=== PATIENT | female | born 1995 | race Caucasian/White ===

== ENCOUNTER 2020-05-28 16:05 | Outpatient (REF) | payer BC, SELFPAY | END 2020-05-28 16:06 | disposition home or self-care (01) | LOC: HO.LAB 16:05 | PROVIDERS: Visit Provider Internal Medicine | DX: Z20.822 Contact with and (suspected) exposure to COVID-19 (principal) | CPT/HCPCS: 36415; C9803; U0003 ==

== ENCOUNTER 2020-08-20 16:01 | Outpatient (REF) | payer BC, SELFPAY ==
[2020-08-21 11:18] LABS: SARS COV2 PCR INHOUSE NEGATIVE (Negative)
== END 2020-08-20 16:02 | disposition home or self-care (01) ==
LOC: HO.LAB 16:01
PROVIDERS: Visit Provider Internal Medicine
DX: Z20.822 Contact with and (suspected) exposure to COVID-19 (principal)
CPT/HCPCS: C9803; U0003

== ENCOUNTER 2022-03-04 13:54 | Outpatient (REF) | payer MEDICAID, SELFPAY ==
--- NOTE | ~2022-03-04 | XR_ITS ---
EXAMINATION: XR CHEST CLINICAL INFORMATION: Shortness of breath COMPARISON: None TECHNIQUE: 2 views of the chest were obtained. FINDINGS: No significant abnormality is noted involving the heart, lungs, mediastinum, bony thorax or soft tissues. XR/XR chest 2V IMPRESSION: No acute disease.
== END 2022-03-04 13:55 | disposition home or self-care (01) ==
LOC: HO.XRAY 13:54
PROVIDERS: Absent Provider Registered Nurse; PCP Registered Nurse; Visit Provider Family Medicine
DX: R06.02 Shortness of breath (principal)
CPT/HCPCS: 71046

== ENCOUNTER 2022-03-06 08:01 | Observation (INO) | payer MEDICAID, SELFPAY ==
[2022-03-06] VITALS (7 sets, daily range): BP systolic 92–119; BP diastolic 54–72; PULSE 62–124; RESP 14–18; TEMP 36.6–37.2; O2SAT 97–100; BMI 21.5
--- NOTE | ~2022-03-06 | CT_ITS ---
EXAMINATION: CT ANGIOGRAM OF THE HEAD CT ANGIOGRAM OF THE NECK CLINICAL INFORMATION: Confusion, facial numbness. COMPARISON: There are no prior studies available for comparison. . TECHNIQUE: A noncontrast axial CT scan of the head was obtained. Test bolus series followed by intravenous administration 70 mL of Omnipaque 350. Helical imaging was performed in the axial plane from the mediastinum to the skull vertex. The degree of stenosis is based off NASCET criteria. The data was processed at the public health technologist workstation for generation of MIP images. Three-dimensional volume rendered reformatted images were also generated at an offline 3-D workstation. This CT examination was performed using dose optimization techniques as appropriate, variously including the following: *Automated exposure control *Adjustment of mA and/or kV according to patient size (this includes techniques or standardized protocols for targeted exams where dose is matched to indication/reason for exam; i.e. extremities or head) *Use of iterative reconstruction technique DLP: 2230 mGy-cm. FINDINGS: CT Head: There is no evidence of acute intracranial hemorrhage or territorial infarction. No abnormal mass-effect or midline shift is seen. García to white matter differentiation is well preserved. No extra-axial fluid collections are identified. There is no abnormal enhancement. The ventricles are normal in size. There is no abnormal attenuation within the brain parenchyma. The osseous structures and soft tissues are normal. The mastoid air cells and visualized portions of the paranasal sinuses are well-aerated. CTA Neck: There is a classic configuration of the arch of the aorta. The great vessels of the neck are widely patent. The subclavian arteries appear normal bilaterally. The common carotid arteries have normal caliber. The carotid bifurcations bilaterally appear normal. The internal carotid arteries in the neck bilaterally have uniform and normal caliber. The origins of both vertebral arteries are well seen and appear normal. Both vertebral arteries are widely patent and demonstrate good opacification throughout their cervical course. The left vertebral artery is slightly dominant. Nonvascular: The visualized upper lung torres are well-aerated. There is no cervical lymphadenopathy. The thyroid gland appears normal. There is reversal of the normal cervical lordosis which is likely positional or muscle spasm. There are no acute findings of the cervical spine. CTA Head: In the anterior circulation, the distal internal carotid arteries within the neck appear normal. The intracranial internal carotid arteries and their bifurcations appear normal. The middle and anterior cerebral arteries bilaterally demonstrate normal caliber with no evidence of focal stenosis, aneurysm or vascular malformation. There is normal arborization of the middle cerebral artery branches. The anterior communicating artery is normal. In the posterior circulation, the left vertebral artery is dominant. The vertebral arteries intradurally have normal caliber. The basilar artery appears normal. The posterior cerebral arteries have normal caliber. The venous sinuses opacify normally. CT/CT angio head neck IMPRESSION: CT head and neck: 1. There are no acute bleeds or infarcts. There are no masses or areas of abnormal enhancement. 2. There is no cervical lymphadenopathy. CTA NECK: 1. There are no flow-limiting stenoses in the upper chest and neck. 2. Intracranially there are no focal stenoses, aneurysms or vascular malformations. This critical result was discussed with MARTIN Marti by telephone on 03/06/2022 at 6:49 PM and it was ascertained that the content and urgency of the report was understood at the time of direct communication.
--- NOTE | ~2022-03-06 | MR_ITS ---
EXAMINATION: MRI OF THE BRAIN WITHOUT CONTRAST CLINICAL INFORMATION: Facial paresthesias and syncope. COMPARISON: CT of the head and neck 03/06/2020. TECHNIQUE: MRI of the brain was obtained using routine sequences without contrast. FINDINGS: No diffusion abnormalities are identified to suggest an acute or subacute infarct. No mass effect or midline shift is seen. The ventricles and sulci are normal in size. There are a few punctate foci of hyperintense T2 and FLAIR signal in the periventricular and subcortical white matter which are nonspecific. They may be consistent with sequelae of vasculitis or migraine. The patient is relatively young for chronic microvascular ischemic changes. Demyelination cannot be excluded in the correct clinical setting. No extra-axial fluid collections are seen. The brainstem and cerebellum are normal. No pathologic magnetic susceptibility artifact is identified on the gradient refocused acquisition. The craniovertebral junction, marrow signal, and midline structures are normal. The major intracranial flow-voids at the level of the [place] are preserved. The dural venous sinus flow-voids are maintained. The mastoid air cells are well-aerated. There is mucoperiosteal thickening in bilateral maxillary and ethmoid sinuses. MR/MR head/brain wo con IMPRESSION: 1. There are no acute bleeds or infarcts. No masses are demonstrated. 2. There are nonspecific white matter changes as described above. 3. There is paranasal sinus opacification.
--- NOTE | 2022-03-06 12:54 | ED_ITS ---
HPI - Neuro Symptoms/Deficit General Chief Complaint: Neuro Symptoms/Deficit Stated Complaint: Blacked Out Facial Numbness 0700 2 Min Time Seen by Provider: 03/06/22 12:53 Source: patient Mode of arrival: ambulatory History of Present Illness HPI Narrative: 26-year-old female with no significant past medical history presenting to the ED complaining of blackout episode of 2-3 minutes this morning around 06:30AM. States woke up to say goodbye to her boyfriend, was sitting up in bed then leaned/fell into hugging him then laid back in bed, patient states could hear him however felt like he was far away, when came back to baseline admits to facial/lip numbness. Patient does not remember incident, states boyfriend said he was talking to her however she not really responding, he did not understand what was going on. Symptoms resolved at present. Reports checked BP and SpO2 was 84% after incident at home. Admits to intermittent headache since last night. Reports recent URI symptoms with cough, and waking up gasping for air. Denies focal weakness, vision change/loss, chest pain, abdominal pain, nausea, vomiting, numbness/tingling at present. Denies taking anticoagulation Onset (ago): hour(s) Related Data Allergies Allergy/AdvReac Type Severity Reaction Status Date / Time No Known Allergies Allergy Unverified 02/02/20 19:33 [No Known Allergies*] Review of Systems Review of Systems: Constitutional: No Fever, No Chills, No Fatigue, No Malaise ENT/Mouth: No Ear Pain, No Nasal Congestion, No sore throat, No Rhinorrhea, No Swallowing Difficulty Eyes: No Eye Pain, No Swelling, No Redness, No Discharge, No Vision Changes Cardiovascular: No Chest Pain, No SOB, No Dyspnea on Exertion, No Orthopnea, No Edema, No Palpitations Respiratory: No Cough, No Sputum, No Dyspnea Gastrointestinal: No Nausea, No Vomiting, No Diarrhea, No Constipation, No Abdominal pain Genitourinary: No Dysuria, No Urinary Frequency, No Hematuria, No Urinary Incont inence/retention, No Flank Pain Musculoskeletal: No joint pain, No Myalgias, No Joint Swelling Skin: No Skin Lesions, No rash Neuro: No Weakness, + Numbness, + Paresthesias, ? Loss of Consciousness, No Dizziness, +intermittent Headache, +confusion Yes all other systems are reviewed and are negative Constitutional: Constitutional: Reports as per HPI Neurologic: Denies Abnormal speech present [facility] Past Medical History Attestation statement: The following information was validated with the patient. Social History Social History Advance Directives: No Advance Directives Information Provided: No Physical Exam Vital Signs: Vital Signs: Last Vital Signs Temp 98 F 03/06/22 09:41 Pulse 73 03/06/22 09:41 Resp 18 03/06/22 09:41 BP 119/71 03/06/22 09:41 Pulse Ox 100 03/06/22 09:41 O2 Del Method 03/06/22 09:41 BMI result Body Mass Index 21.5 Const: General: cooperative, healthy appearing, no acute distress, well developed, alert and awake Orientation/consciousness: patient oriented x3 Limitations: no limitations HEENT: Head: Yes normal to inspection and Yes atraumatic Ears: hearing grossly normal bilaterally General nose exam: Normal external nose present Face and sinus: Yes normal facial exam Throat: Yes posterior oropharynx normal, Yes tonsils normal and Yes uvula midline Eyes: General: appearance normal, both eyes and all related structures Pupils: Equal, round and reactive pupils present EOM: EOMs intact bilaterally Neck: Neck: Yes normal visual inspection, Yes no lymphadenopathy and Yes no meningeal signs Resp: Effort & Inspection: normal respiratory effort and no respiratory distress Auscultation: clear to auscultation bilaterally, no crackles, no rales, no rhonchi and no wheezes Cardio: Rate: regular rate Heart sounds: S1 normal heart sound present and S2 normal heart sound present GI: Inspection: Yes normal to inspection Palpation (GI): Soft to palpation, nontender, no guarding and not rigid : General: Yes no CVA tenderness Back/Spine/Pelvis: Back: no CVA tenderness Skin: Rashes: no rashes Wounds: no wounds Neuro: General: patient oriented x3, gait normal, tone normal, moves all extremities, no meningeal signs, no focal motor deficits and CN's II-XI intact bilaterally Cranial nerves: Yes CN's II-XII intact bilaterally, Yes Equal, round and reactive pupils present and Yes Bilaterally intact EOM present Cognition (Neuro): normal cognition Speech: No Abnormal speech present Gait exam (Neuro): Normal gait present Motor exam (neuro): 5/5 motor strength present throughout, Pronator motor function not present and no tremor noted Coordination: [id number] test normal Romberg Test: Negative Extrem: General: Yes normal to inspection Course Course Course Narrative: 1430--no leukocytosis. H&H stable. D-dimer WNL, labs otherwise unremarkable. Troponin negative -UA negative XR chest 2V IMPRESSION: No acute disease. 1920--CT angio head neck IMPRESSION: CT head and neck: 1. There are no acute bleeds or infarcts. There are no masses or areas of abnormal enhancement. 2. There is no cervical lymphadenopathy. ? CTA NECK: 1. There are no flow-limiting stenoses in the upper chest and neck. 2. Intracranially there are no focal stenoses, aneurysms or vascular malformations. >> case discussed with Neurology, Dr. Varela, recommended admission, EEG and brain MRI, concern for possible seizure. Plan to admit for further management MDM - Neuro Symptoms/Deficit MDM Narrative Medical decision making narrative: 26-year-old female with no significant past medical history presenting to the ED complaining of blackout episode of 2-3 minutes this morning around 06:30AM. On exam vital signs stable, in the ED, nontoxic appearing, no focal neuro deficits, ambulating with steady gait, asymptomatic at present, NIHSS=0. Patient is not a candidate for tPA. Concern for syncope vs ?Seizure vs ?TIA vs arterial pahtology. Low suspicion for CVA, ICH. Rule out metabolic/infectious etiologies. Lower suspicion for PE/ACS Plan: EKG, labs, UA, CXR, head CT, CTA head and neck, IVF, orthostatics Differential Diagnosis Differential diagnosis: Likely convulsions, delirium, peripheral neuropathy, transient cerebral ischemia and global amnesia Medical Records Attestation: I reviewed the patient's medical records. Lab Data Attestation: I reviewed the patient's lab results. Result diagrams: 03/06/22 13:48 03/06/22 13:48 Labs: Lab Results 03/06/22 03/06/22 03/06/22 Range/Units 13:47 13:47 13:48 WBC 10.8 (4.8-10.8) X10*3/uL RBC 4.77 (4.20-5.50) X10*6/uL Hgb 14.3 (12.0-16.0) g/dl Hct 43.3 (37.0-47.0) % MCV 90.8 (80.0-98.0) fL MCH 30.0 (27.0-33.0) pg MCHC 33.0 (31.0-35.0) g/dl RDW 12.2 (11.0-16.0) % Plt Count 228 (160-400) X10*3/uL MPV 9.5 (9.4-12.3) fL Immature Gran % (Auto) 0.3 (0.0-0.4) % Neut % (Auto) 66.2 (45-73) % Lymph % (Auto) 22.3 (20-40) % [place] % (Auto) 5.4 (2-11) % Eos % (Auto) 5.4 H (0-4) % Baso % (Auto) 0.4 (0-2) % Lymph # (Auto) 2.4 (1.2-4.9) X10*3/uL [place] # (Auto) 0.6 (0.1-1.2) X10*3/uL Eos # (Auto) 0.6 H (0.0-0.4) X10*3/uL Baso # (Auto) 0.0 (0.0-0.2) X10*3/uL Abs Immat Gran (auto) 0.03 (0.00-0.03) X10*3/uL Absolute Neuts (auto) 7.1 (2.0-8.3) x10*3/uL Absolute Nucleated RBC 0.000 (0.0-0.012) X10*3/uL Nucleated RBC % (auto) 0.0 (0.0-0.2) /100WBC PT (10.0-13.1) SEC INR (0.9-1.1) D-Dimer High Sensitivty NG/ML Sodium (135-145) mmol/L Potassium (3.3-5.1) mmol/L Chloride (96-108) mmol/L Carbon Dioxide (22-29) mmol/L Anion Gap (12-20) BUN (9-16) mg/dL Creatinine (0.5-1.4) mg/dL Estim Creat Clear Calc Estimated GFR Random Glucose (60-115) mg/dL Calcium (8.4-10.2) mg/dL Magnesium (1.6-2.6) mg/dL Total Bilirubin (0.0-1.0) mg/dL Direct Bilirubin (0.0-0.5) mg/dL AST (5-31) U/L ALT (0-31) U/L Alkaline Phosphatase (39-117) U/L Troponin I High Sens (<3.5-17.0) ng/L Total Protein (6.5-8.0) g/dL Albumin (3.5-5.0) g/dL Urine Color Yellow Urine Appearance Clear Urine pH 5.5 (5.0-9.0) Ur Specific [place] 1.020 (1.005-1.025) Urine Protein Negative (Neg-Trace) mg/dL Urine Glucose (UA) Negative (Negative) mg/dL Urine Ketones Negative (Negative) mg/dL Urine Blood Negative (Negative) Urine Nitrite Negative (Negative) Ur Leukocyte Esterase Negative (Negative) Urine Test NEGATIVE (NEGATIVE) Urine Opiates Screen (Not Detect) Urine Fentanyl Screen (Not Detect) Ur Barbiturates Screen (Not Detect) Ur Phencyclidine Scrn (Not Detect) Ur Amphetamines Screen (Not Detect) U Benzodiazepines Scrn (Not Detect) Urine Cocaine Screen (Not Detect) U Marijuana (THC) Screen (Not Detect) 03/06/22 03/06/22 03/06/22 Range/Units 13:48 13:48 13:48 WBC (4.8-10.8) X10*3/uL RBC (4.20-5.50) X10*6/uL Hgb (12.0-16.0) g/dl Hct (37.0-47.0) % MCV (80.0-98.0) fL MCH (27.0-33.0) pg MCHC (31.0-35.0) g/dl RDW (11.0-16.0) % Plt Count (160-400) X10*3/uL MPV (9.4-12.3) fL Immature Gran % (Auto) (0.0-0.4) % Neut % (Auto) (45-73) % Lymph % (Auto) (20-40) % [place] % (Auto) (2-11) % Eos % (Auto) (0-4) % Baso % (Auto) (0-2) % Lymph # (Auto) (1.2-4.9) X10*3/uL [place] # (Auto) (0.1-1.2) X10*3/uL Eos # (Auto) (0.0-0.4) X10*3/uL Baso # (Auto) (0.0-0.2) X10*3/uL Abs Immat Gran (auto) (0.00-0.03) X10*3/uL Absolute Neuts (auto) (2.0-8.3) x10*3/uL Absolute Nucleated RBC (0.0-0.012) X10*3/uL Nucleated RBC % (auto) (0.0-0.2) /100WBC PT 12.8 (10.0-13.1) SEC INR 1.1 (0.9-1.1) D-Dimer High Sensitivty NG/ML Sodium 141 (135-145) mmol/L Potassium 4.1 (3.3-5.1) mmol/L Chloride 105 (96-108) mmol/L Carbon Dioxide 27 (22-29) mmol/L Anion Gap 13 (12-20) BUN 11 (9-16) mg/dL Creatinine 0.77 (0.5-1.4) mg/dL Estim Creat Clear Calc 90.8 Estimated GFR > 60 Random Glucose 93 (60-115) mg/dL Calcium 9.5 (8.4-10.2) mg/dL Magnesium 2.0 (1.6-2.6) mg/dL Total Bilirubin 1.1 H (0.0-1.0) mg/dL Direct Bilirubin 0.3 (0.0-0.5) mg/dL AST 21 (5-31) U/L ALT 16 (0-31) U/L Alkaline Phosphatase 63 (39-117) U/L Troponin I High Sens < 3.5 (<3.5-17.0) ng/L Total Protein 7.3 (6.5-8.0) g/dL Albumin 4.5 (3.5-5.0) g/dL Urine Color Urine Appearance Urine pH (5.0-9.0) Ur Specific [place] (1.005-1.025) Urine Protein (Neg-Trace) mg/dL Urine Glucose (UA) (Negative) mg/dL Urine Ketones (Negative) mg/dL Urine Blood (Negative) Urine Nitrite (Negative) Ur Leukocyte Esterase (Negative) Urine Test (NEGATIVE) Urine Opiates Screen (Not Detect) Urine Fentanyl Screen (Not Detect) Ur Barbiturates Screen (Not Detect) Ur Phencyclidine Scrn (Not Detect) Ur Amphetamines Screen (Not Detect) U Benzodiazepines Scrn (Not Detect) Urine Cocaine Screen (Not Detect) U Marijuana (THC) Screen (Not Detect) 03/06/22 03/06/22 Range/Units 13:48 13:48 WBC (4.8-10.8) X10*3/uL RBC (4.20-5.50) X10*6/uL Hgb (12.0-16.0) g/dl Hct (37.0-47.0) % MCV (80.0-98.0) fL MCH (27.0-33.0) pg MCHC (31.0-35.0) g/dl RDW (11.0-16.0) % Plt Count (160-400) X10*3/uL MPV (9.4-12.3) fL Immature Gran % (Auto) (0.0-0.4) % Neut % (Auto) (45-73) % Lymph % (Auto) (20-40) % [place] % (Auto) (2-11) % Eos % (Auto) (0-4) % Baso % (Auto) (0-2) % Lymph # (Auto) (1.2-4.9) X10*3/uL [place] # (Auto) (0.1-1.2) X10*3/uL Eos # (Auto) (0.0-0.4) X10*3/uL Baso # (Auto) (0.0-0.2) X10*3/uL Abs Immat Gran (auto) (0.00-0.03) X10*3/uL Absolute Neuts (auto) (2.0-8.3) x10*3/uL Absolute Nucleated RBC (0.0-0.012) X10*3/uL Nucleated RBC % (auto) (0.0-0.2) /100WBC PT (10.0-13.1) SEC INR (0.9-1.1) D-Dimer High Sensitivty < 150 NG/ML Sodium (135-145) mmol/L Potassium (3.3-5.1) mmol/L Chloride (96-108) mmol/L Carbon Dioxide (22-29) mmol/L Anion Gap (12-20) BUN (9-16) mg/dL Creatinine (0.5-1.4) mg/dL Estim Creat Clear Calc Estimated GFR Random Glucose (60-115) mg/dL Calcium (8.4-10.2) mg/dL Magnesium (1.6-2.6) mg/dL Total Bilirubin (0.0-1.0) mg/dL Direct Bilirubin (0.0-0.5) mg/dL AST (5-31) U/L ALT (0-31) U/L Alkaline Phosphatase (39-117) U/L Troponin I High Sens (<3.5-17.0) ng/L Total Protein (6.5-8.0) g/dL Albumin (3.5-5.0) g/dL Urine Color Urine Appearance Urine pH (5.0-9.0) Ur Specific [place] (1.005-1.025) Urine Protein (Neg-Trace) mg/dL Urine Glucose (UA) (Negative) mg/dL Urine Ketones (Negative) mg/dL Urine Blood (Negative) Urine Nitrite (Negative) Ur Leukocyte Esterase (Negative) Urine Test (NEGATIVE) Urine Opiates Screen Not Detected (Not Detect) Urine Fentanyl Screen Not Detected (Not Detect) Ur Barbiturates Screen Not Detected (Not Detect) Ur Phencyclidine Scrn Not Detected (Not Detect) Ur Amphetamines Screen Not Detected (Not Detect) U Benzodiazepines Scrn Not Detected (Not Detect) Urine Cocaine Screen Not Detected (Not Detect) U Marijuana (THC) Screen Not Detected (Not Detect) NIH Stroke Scale Internal: Initial- Upon Arrival Level of Consciousness: Alert Level of Consciousness Questions: Answers both questions correctly Level of Consciousness Commands: Performs both tasks correctly Best Gaze: Normal Visual: No visual loss Facial Palsy: Normal Motor Arm (Right): No drift Motor Arm (Left): No drift Motor Leg (Right): No drift Motor Leg (Left): No drift Limb Ataxia: Absent Sensory: Normal Best Language: No aphasia Dysarthia: Normal Extinction and Inattention: No abnormality Score: 0 Discharge Plan Discharge Clinical Impression: Amnesia memory loss Patient Disposition: Admitted As Inpatient
--- NOTE | 2022-03-06 13:04 | ECG_ITS ---
Test Reason : SYNCOPE Blood Pressure : / mmHG Vent. Rate : 084 BPM Atrial Rate : 084 BPM P-R Int : 140 ms QRS Dur : 074 ms QT Int : 368 ms P-R-T Axes : 074 075 069 degrees QTc Int : 434 ms Normal sinus rhythm with sinus arrhythmia RSR' or QR pattern in V1 suggests right ventricular conduction delay Otherwise normal ECG No previous ECGs available Referred By: Patricia Mac Electronically Signed By:ROJELIO GARSIA MD
[2022-03-06 13:52] LABS: MANUAL DIFF FLAG NO
[2022-03-06] MEDS: 0.9 % Sodium Chloride 1,000 ML 999 ML IV (13:54)
[2022-03-06 13:56] LABS: Basophils Percent Auto 0.4 % (0-2); Eosinophils Absolute Auto 0.6 X10*3/uL (0.0-0.4); Eosinophils Percent Auto 5.4 % (0-4); Hematocrit 43.3 % (37.0-47.0); Hemoglobin 14.3 g/dl (12.0-16.0); Imm Gran Abs Auto 0.03 X10*3/uL (0.00-0.03); Imm Gran Pct Auto 0.3 % (0.0-0.4); Lymphocytes Absolute Auto 2.4 X10*3/uL (1.2-4.9); Lymphocytes Percent Auto 22.3 % (20-40); Mean Corpuscular Volume 90.8 fL (80.0-98.0); Mean Platelet Volume 9.5 fL (9.4-12.3); Monocytes Absolute Auto 0.6 X10*3/uL (0.1-1.2); Monocytes Percent Auto 5.4 % (2-11); Neutrophils Absolute Auto 7.1 x10*3/uL (2.0-8.3); Neutrophils Percent Auto 66.2 % (45-73); Platelet Count 228 X10*3/uL (160-400); Red Blood Count 4.77 X10*6/uL (4.20-5.50); Red Cell Distribution Width 12.2 % (11.0-16.0); White Blood Count 10.8 X10*3/uL (4.8-10.8)
[2022-03-06 13:59] LABS: Appearance Urine Clear; Color Urine Yellow; Glucose Urine UA Negative (Negative); Leukocyte Esterase Urine Negative (Negative); Nitrite Urine Negative (Negative); PH 5.5 (5.0-9.0); Urine Blood Negative (Negative); Urine Ketones Negative (Negative); Urine Protein Negative (Neg-Trace)
[2022-03-06 14:00] LABS: UPreg QC Valid YES; Urine Pregnancy NEGATIVE (NEGATIVE)
[2022-03-06 14:06] LABS: D Dimer High Sensitivity < 150 NG/ML
[2022-03-06 14:16] LABS: Alanine Aminotransferase 16 U/L (0-31); Albumin Level 4.5 g/dL (3.5-5.0); Alkaline Phosphatase 63 U/L (39-117); Anion Gap 13 (12-20); Aspartate Amino Transferase 21 U/L (5-31); Bilirubin Direct 0.3 mg/dL (0.0-0.5); Bilirubin Total 1.1 mg/dL (0.0-1.0); Blood Urea Nitrogen 11 mg/dL (9-16); Calcium 9.5 mg/dL (8.4-10.2); Carbon Dioxide 27 mmol/L (22-29); Chloride 105 mmol/L (96-108); Creatinine Clr Calc Pharmacy 90.8; Estimated Glomerular Filt Rate > 60; Glucose Random 93 mg/dL (60-115); Potassium 4.1 mmol/L (3.3-5.1); Sodium 141 mmol/L (135-145); Total Protein 7.3 g/dL (6.5-8.0)
[2022-03-06 14:19] LABS: Troponin-I High Sensitivity < 3.5 ng/L (<3.5-17.0)
[2022-03-06 14:20] LABS: INTERNATIONAL NORM RATIO 1.1 (0.9-1.1); Prothrombin Time 12.8 SEC (10.0-13.1)
[2022-03-06 16:46] LABS: Amphetamine Screen Urine Not Detected (Not Detect); Barbiturates, Urine Not Detected (Not Detect); Benzodiazepines Screen Urine Not Detected (Not Detect); Cannabinoid Screen Urine Not Detected (Not Detect); Cocaine Screen Urine Not Detected (Not Detect); Fentanyl, urine Not Detected (Not Detect); Opiate Screen Urine Not Detected (Not Detect); Phencyclidine Screen Urine Not Detected (Not Detect)
[2022-03-06] MEDS: iohexoL 350 MG/ML 100 ML INFUS..BTL IV (17:35)
--- NOTE | 2022-03-06 20:01 | PM.IMHP ---
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 She is here today with her boyfriend with whom she lives. She awoke this am around 6:00 when her boyfriend was getting ready for work. She recalls sitting up wanting to kiss him goodbye but felt weird (unable to describe) and instead slumped forward hugging him and slid down to a laying position. Thinking she was falling back to sleep he got up and stood in the door way. The patient recalls his voice sounding muffled and farther away and was very confused about what was going on. Her boyfriend states her speech was not slurred and made sense without any facial droop. She states when she sat up she was confused and her face became flushed and developed numbness of the entire face. She states she got in the shower and texted her father who arrived at 730am and she felt a bit more oriented but still had tingling along her hairline. Has no history of similar events. She denies etoh use or illicit drug use. States she did have a seizure 6 years ago related to zoloft use but this was discontinued without any recurrence. Denies any migraine history. No tick bites. She does endorse occassional panic attacks but states she was not anxious at the onset of her symptoms. On arrival to the ED symptoms had fully resolved but is still unclear about the events between 6-730 this am. She denies any recent illness. Not on estrogen containing OCP. No fevers, chills, nausea, vomiting, abdominal pain, urinary issues, diarrhea, worsening shortness of breath, palpitations, lightheadedness, or chest pain. In the ED, VSS, EKG shows normal sinus rhythm without any ST/T-wave abnormalities. Hematology studies unremarkable. Renal function, electrolyte levels, hepatic. Troponin negative. UA unremarkable. Tox screen negative. Chest x-ray negative for any acute pulmonary pathology. CTA head and neck are negative for any acute bleed or infarctions. There are no flow-limiting stenoses in the upper chest neck or focal stenoses intracranially, aneurysms, or vascular malformations. Case was discussed with Neurology who is recommending observation and brain MRI. Review of Systems Review of Systems: General: No fevers, malaise, unintentional weight loss HEENT: No blurred vision or diplopia Cardiovascular: No chest pain, palpitations, or leg edema Respiratory: No shortness of breath, wheezing, cough GI: No abdominal pain, nausea, vomiting, diarrhea, constipation, melena, hematochezia : No dysphagia, globus sensation, increased urinary frequency. MSK: No myalgias or arthralgias Neuro: +confusion, + paresthesias. No headaches, weakness Skin: No rashes or lesions PMFSH Medical History Post-COVID chronic dyspnea Family History Father Hyperlipidemia Paternal Grandmother Hyperlipidemia HTN (hypertension) Social History Alcohol intake: current Alcohol intake frequency: a few times a month Patient Tobacco Use Status: Never used Tobacco Use of substances other than those prescribed or required for medical reasons: Yes Advance Directives: No Advance Directives Information Provided: No Meds Allergies Allergy/AdvReac Type Severity Reaction Status Date / Time No Known Allergies Allergy Unverified 02/02/20 19:33 [No Known Allergies*] Active Medications: Current Medications Acetaminophen (Acetaminophen 325 Mg Tablet) 650 mg PO Q6H PRN PRN Reason: Pain, Mild (Pain Scale 1-3) Enoxaparin Sodium (Enoxaparin Sodium 40 Mg/0.4 Ml Syringe) 40 mg SUBCUT Q24H [facility] Ondansetron HCl (Ondansetron Hcl 4 Mg/2 Ml Vial) 4 mg IVPUSH Q8H PRN PRN Reason: Nausea and Vomiting Pharmacy Consult (Consult Rx Perform Med Rec) 1 each MISCELLANE ONCE PRN PRN Reason: Consult order Sodium Chloride (0.9 % Sodium Chloride Flush 3 Ml Syringe) 3 ml IVFLUSH QSHIFT [facility] Home Medications Medication Instructions Recorded Confirmed Last Taken Type albuterol sulfate 90 mcg/actuation 2 puff inhalation Q4-6H PRN 03/06/22 03/06/22 Unknown History aerosol inhaler Shortness Of Breath fluticasone propionate 110 1 puff inhalation BID 03/06/22 03/06/22 Unknown History mcg/actuation HFA aerosol inhaler Physical Exam Vital Signs and Narrative: Vital Signs: Last Vital Signs Temp 98 F 03/06/22 09:41 Pulse 73 03/06/22 09:41 Resp 18 03/06/22 09:41 BP 119/71 03/06/22 09:41 Pulse Ox 100 03/06/22 09:41 O2 Del Method 03/06/22 09:41 BMI result Body Mass Index 21.5 Constitutional - Awake and Alert, No apparent distress Eyes - PERRLA, EOMI Neck: Supple, no adenopathy, no carotid bruits Cardiovascular - S1S2, RRR, No edema Respiratory - Normal lung expansion, Normal respiratory effort, No respiratory distress, CTA bilaterally Gastrointestinal - NT / ND; +BS; No rebound or guarding Extremities - no calf tenderness bilaterally, no swelling Skin - Warm/Dry Neurological - Alert & oriented x3, CN II-XII in tact, 5/5 strength BUE and BLE, no sensory deficits Psychological - Appropriate affect Results Labs CBC and Chem 7: 03/06/22 13:48 03/06/22 13:48 Labs: Laboratory Results - last 24 hr 03/06/22 03/06/22 03/06/22 13:47 13:47 13:48 MCV 90.8 MCH 30.0 MCHC 33.0 RDW 12.2 Plt Count 228 MPV 9.5 Immature Gran % (Auto) 0.3 Neut % (Auto) 66.2 Lymph % (Auto) 22.3 [place] % (Auto) 5.4 Eos % (Auto) 5.4 H Baso % (Auto) 0.4 Lymph # (Auto) 2.4 [place] # (Auto) 0.6 Eos # (Auto) 0.6 H Baso # (Auto) 0.0 Abs Immat Gran (auto) 0.03 Absolute Neuts (auto) 7.1 Absolute Nucleated RBC 0.000 Nucleated RBC % (auto) 0.0 PT INR D-Dimer High Sensitivty Anion Gap Estim Creat Clear Calc Estimated GFR Random Glucose Calcium Magnesium Total Bilirubin Direct Bilirubin AST ALT Alkaline Phosphatase Troponin I High Sens Total Protein Albumin Urine Color Yellow Urine Appearance Clear Urine pH 5.5 Ur Specific [place] 1.020 Urine Protein Negative Urine Glucose (UA) Negative Urine Ketones Negative Urine Blood Negative Urine Nitrite Negative Ur Leukocyte Esterase Negative Urine Test NEGATIVE Urine Opiates Screen Urine Fentanyl Screen Ur Barbiturates Screen Ur Phencyclidine Scrn Ur Amphetamines Screen U Benzodiazepines Scrn Urine Cocaine Screen U Marijuana (THC) Screen 03/06/22 03/06/22 03/06/22 13:48 13:48 13:48 MCV MCH MCHC RDW Plt Count MPV Immature Gran % (Auto) Neut % (Auto) Lymph % (Auto) [place] % (Auto) Eos % (Auto) Baso % (Auto) Lymph # (Auto) [place] # (Auto) Eos # (Auto) Baso # (Auto) Abs Immat Gran (auto) Absolute Neuts (auto) Absolute Nucleated RBC Nucleated RBC % (auto) PT 12.8 INR 1.1 D-Dimer High Sensitivty Anion Gap 13 Estim Creat Clear Calc 90.8 Estimated GFR > 60 Random Glucose 93 Calcium 9.5 Magnesium 2.0 Total Bilirubin 1.1 H Direct Bilirubin 0.3 AST 21 ALT 16 Alkaline Phosphatase 63 Troponin I High Sens < 3.5 Total Protein 7.3 Albumin 4.5 Urine Color Urine Appearance Urine pH Ur Specific [place] Urine Protein Urine Glucose (UA) Urine Ketones Urine Blood Urine Nitrite Ur Leukocyte Esterase Urine Test Urine Opiates Screen Urine Fentanyl Screen Ur Barbiturates Screen Ur Phencyclidine Scrn Ur Amphetamines Screen U Benzodiazepines Scrn Urine Cocaine Screen U Marijuana (THC) Screen 03/06/22 03/06/22 13:48 13:48 MCV MCH MCHC RDW Plt Count MPV Immature Gran % (Auto) Neut % (Auto) Lymph % (Auto) [place] % (Auto) Eos % (Auto) Baso % (Auto) Lymph # (Auto) [place] # (Auto) Eos # (Auto) Baso # (Auto) Abs Immat Gran (auto) Absolute Neuts (auto) Absolute Nucleated RBC Nucleated RBC % (auto) PT INR D-Dimer High Sensitivty < 150 Anion Gap Estim Creat Clear Calc Estimated GFR Random Glucose Calcium Magnesium Total Bilirubin Direct Bilirubin AST ALT Alkaline Phosphatase Troponin I High Sens Total Protein Albumin Urine Color Urine Appearance Urine pH Ur Specific [place] Urine Protein Urine Glucose (UA) Urine Ketones Urine Blood Urine Nitrite Ur Leukocyte Esterase Urine Test Urine Opiates Screen Not Detected Urine Fentanyl Screen Not Detected Ur Barbiturates Screen Not Detected Ur Phencyclidine Scrn Not Detected Ur Amphetamines Screen Not Detected U Benzodiazepines Scrn Not Detected Urine Cocaine Screen Not Detected U Marijuana (THC) Screen Not Detected Imaging Radiologist's Impressions: Impressions Head/Neck CTA 03/06/22 17:30 IMPRESSION: CT head and neck: 1. There are no acute bleeds or infarcts. There are no masses or areas of abnormal enhancement. 2. There is no cervical lymphadenopathy. CTA NECK: 1. There are no flow-limiting stenoses in the upper chest and neck. 2. Intracranially there are no focal stenoses, aneurysms or vascular malformations. This critical result was discussed with MARTIN Marti by telephone on 03/06/2022 at 6:49 PM and it was ascertained that the content and urgency of the report was understood at the time of direct communication. 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 # amnesia episode -patient with 90 minute period this morning with confusion and bilateral facial paresthesias that have fully resolved -CTA head/neck negative for infarction, hemorrhage, stenosis, aneurysms or vascular malformations -U tox negative. -lab workup unremarkable -no recent tick bites -MRI brain pending as advised by Neurology -orthostatics pending -seizure precautions -neurology consult pending -observe on telemetry # post COVID 19 dyspnea -stable, no hypoxia DVT prophylaxis-Lovenox Full code Quality Stroke Does the patient have a stroke diagnosis?: No VTE Prior VTE?: No VTE Risk Level:: Medical - moderate - high VTE Device Contraindication: Treatment Not Indicated VTE Drug Contraindication: N/A - Med Ordered
[2022-03-06] MEDS: Enoxaparin Sodium 40 MG/0.4 ML SYRINGE SUBCUT (21:18)
--- NOTE | 2022-03-06 21:54 | PHA.MEDREC ---
Pharmacy Consult ? Medication Reconciliation Pharmacy has completed the medication reconciliation. SPOKE WITH PT
--- NOTE | 2022-03-06 22:30 | MHC.CM.PN ---
CM attempted to meet with patient, however pt was sound asleep. Will assess D/C needs when pt awake.
[2022-03-06 23:11] LABS: COVID-19 Test Negative (Negative); IDNOW Serial# 08D9AD1C; Influenza A Negative (Negative); Influenza B2 Negative (Negative)
--- NOTE | 2022-03-06 23:41 | PC.NURSE ---
Hospitalist made aware of pt's orthostatic vitals via [facility]. No new orders obtained at this time. Pt observed to independently ambulate to and from bathroom with even and steady gait without assistance required. Pt with call rolon in reach, NSR on the cardiac monitor technician.
--- NOTE | 2022-03-06 23:49 | PC.NURSE ---
Report provided to Zoey RN from [facility]. RN received notification back from hospitalist regarding plan for new fluid orders, admitting RN aware.
[2022-03-07] VITALS: BP 101/56; PULSE 64; RESP 18; TEMP 36.8; O2SAT 97
[2022-03-07 00:35] VITALS: BMI 21.6
[2022-03-07] MEDS: 0.9 % Sodium Chloride Flush 3 ML SYRINGE IVFLUSH (00:48)
[2022-03-07] MEDS: Lactated Ringers 1,000 ML 100 ML IVCONT ×2 (00:49→09:06)
[2022-03-07 02:58] VITALS: BP 100/66; PULSE 92; RESP 18; TEMP 36.3; O2SAT 96
[2022-03-07 07:49] VITALS: BP 108/59; PULSE 60; RESP 20; TEMP 37.1; O2SAT 98
--- NOTE | 2022-03-07 09:20 | MHC.CM.PN ---
CM met with Patient at bedside and addressed FOSTER with her, providing her with the original and placing a copy on the chart. Patient lives in an apartment with her Boyfriend and 7 year old Son and she is functionally independent and working daytime babysitter. Home, self care is the goal and CM has initiated and will follow for dc planning. Patient has received [employer] vax X2 and her PCP is Dr. Allyson Diaz.
[2022-03-07 12:00] VITALS: BP 104/69; PULSE 68; RESP 19; TEMP 36.9; O2SAT 98
--- NOTE | 2022-03-07 12:12 | P.DS_ITS ---
DS: Providers Provider Date of Service: 03/07/22 Date of admission: 03/06/22 19:28 Date of discharge: 03/07/22 Primary care physician: REBECCA Castillo Admitting clinician: Viridiana Farfan Attending physician on admission: Jason Carpenter Consults: 03/06/22 19:28 Consult to Neurology Routine Consulting Provider: [facility] Reason for consultation: syncope 03/06/22 19:32 Consult to Neurology Stat Consulting Provider: [facility] Reason for consultation: ?Seizure Has provider been notified: Yes Attending physician on discharge: Doug Puga Discharging clinician: Viridiana Farfan DS: Diagnosis Discharge Diagnosis (1) Amnesia memory loss: Status: Acute (2) Altered mental status: Status: Acute (3) Facial paresthesia: Status: Acute (4) Orthostasis: Status: Acute DS: Summary Hospital Course Hospital Course: HPI written by Naheed Kemp PA-C on admission 03/06/22 26 year old female with 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 She is here today with her boyfriend with whom she lives. She awoke this am around 6:00 when her boyfriend was getting ready for work. She recalls sitting up wanting to kiss him goodbye but felt weird (unable to describe) and instead slumped forward hugging him and slid down to a laying position. Thinking she was falling back to sleep he got up and stood in the door way. The patient recalls his voice sounding muffled and farther away and was very confused about what was going on. Her boyfriend states her speech was not slurred and made sense without any facial droop. She states when she sat up she was confused and her face became flushed and developed numbness of the entire face. She states she got in the shower and texted her father who arrived at 730am and she felt a bit more oriented but still had tingling along her hairline. Has no history of similar events. She denies etoh use or illicit drug use. States she did have a seizure 6 years ago related to zoloft use but this was discontinued without any recurrence. Denies any migraine history. No tick bites. She does endorse occassional panic attacks but states she was not anxious at the onset of her symptoms. On arrival to the ED symptoms had fully resolved but is still unclear about the events between 6-730 this am.? She denies any recent illness. Not on estrogen containing OCP. No fevers, chills, nausea, vomiting, abdominal pain, urinary issues, diarrhea, worsening shortness of breath, palpitations, lightheadedness, or chest pain. In the ED, VSS, EKG shows normal sinus rhythm without any ST/T-wave abnormalities.? Hematology studies unremarkable.? Renal function, electrolyte levels, hepatic.? Troponin negative.? UA unremarkable.? Tox screen negative.? Chest x-ray negative for any acute pulmonary pathology.? CTA head and neck are negative for any acute bleed or infarctions.? There are no flow-limiting stenoses in the upper chest neck or focal stenoses intracranially, aneurysms, or vascular malformations. Case was discussed with Neurology who is recommending observation and brain MRI. Hospital Course: Pt observed overnight following amnesic episode with facial paresthesia of unclear etiology with differential including seizure, TIA, syncope, anxiety. CTA head/neck negative for any acute abnormality including hemorrhage of infarction, significnat stenoses, aneurysm, or vascular malformation. She was placed on telemetry without any arrhythmias noted overnight or recurrent episodes. Follow-up brain MRI was evidence of any acute bleed or infarct or mass. There are nonspecific white matter changes possibly consistent with sequelae of vasculitis or migraine, demyelination cannot be excluded. She is evaluated by Neurology who feels the amnesic episode could have been triggered by dehydration resulting in cerebral hypoperfusion that resulted in anxiety causing facial paresthesias. Tick panel is pending. Will call for any positive findings. She was noted to have orthostasis with increase in heart rate around 30 without any true orthostatic hypotension. She was given IV fluids. Given the orthostasis, presenting symptomology and endorsing intermittent headaches, anxiety, dry eye, sleep disorder, fatigue, may also consider possible POTS diagnosis as well. She [facility] discharge to [facility] Time spent discussing smoking cessation with patient: more than 10 minutes Time Spent with Patient Time attestation: Total time spent providing and/or coordinating discharge services: Discharge coordination time: Greater than 30 minutes Quality: Safe Use of Opioids Does Pt have an Active Cancer Diagnosis on the Problem List?: No Quality: Stroke Does the patient have a stroke diagnosis?: No Physical Exam Vital Signs: Vital Signs: Last Vital Signs Temp 98.7 F 03/07/22 07:49 Pulse 60 03/07/22 07:49 Resp 20 03/07/22 07:49 BP 108/59 L 03/07/22 07:49 Pulse Ox 98 03/07/22 07:49 O2 Del Method 03/07/22 07:49 BMI result Body Mass Index 21.6 Constitutional - Awake and Alert, No apparent distress Eyes - PERRLA, EOMI Cardiovascular - S1S2, RRR, No edema Respiratory - Normal lung expansion, Normal respiratory effort, No respiratory distress, CTA bilaterally Gastrointestinal - NT / ND; +BS; No rebound or guarding Extremities - no calf tenderness bilaterally, no swelling Skin - Warm/Dry Neurological - Alert & oriented x3, CN II-XII in tact Psychological - Appropriate affect DS: Data Data Completed and Pending Labs on day of discharge: Laboratory Results - last 24 hr 03/06/22 03/06/22 03/06/22 13:47 13:47 13:48 WBC 10.8 RBC 4.77 Hgb 14.3 Hct 43.3 MCV 90.8 MCH 30.0 MCHC 33.0 RDW 12.2 Plt Count 228 MPV 9.5 Immature Gran % (Auto) 0.3 Neut % (Auto) 66.2 Lymph % (Auto) 22.3 [place] % (Auto) 5.4 Eos % (Auto) 5.4 H Baso % (Auto) 0.4 Lymph # (Auto) 2.4 [place] # (Auto) 0.6 Eos # (Auto) 0.6 H Baso # (Auto) 0.0 Abs Immat Gran (auto) 0.03 Absolute Neuts (auto) 7.1 Absolute Nucleated RBC 0.000 Nucleated RBC % (auto) 0.0 PT INR D-Dimer High Sensitivty Sodium Potassium Chloride Carbon Dioxide Anion Gap BUN Creatinine Estim Creat Clear Calc Estimated GFR Random Glucose Calcium Magnesium Total Bilirubin Direct Bilirubin AST ALT Alkaline Phosphatase Troponin I High Sens Total Protein Albumin Urine Color Yellow Urine Appearance Clear Urine pH 5.5 Ur Specific [place] 1.020 Urine Protein Negative Urine Glucose (UA) Negative Urine Ketones Negative Urine Blood Negative Urine Nitrite Negative Ur Leukocyte Esterase Negative Urine Test NEGATIVE Urine Opiates Screen Urine Fentanyl Screen Ur Barbiturates Screen Ur Phencyclidine Scrn Ur Amphetamines Screen U Benzodiazepines Scrn Urine Cocaine Screen U Marijuana (THC) Screen COVID-19 (EUGENIA) COVID-19 Clin Com Influenza Type A (CHELSEA) Influenza Type B (CHELSEA) Influenza A & B Note 03/06/22 03/06/22 03/06/22 13:48 13:48 13:48 WBC RBC Hgb Hct MCV MCH MCHC RDW Plt Count MPV Immature Gran % (Auto) Neut % (Auto) Lymph % (Auto) [place] % (Auto) Eos % (Auto) Baso % (Auto) Lymph # (Auto) [place] # (Auto) Eos # (Auto) Baso # (Auto) Abs Immat Gran (auto) Absolute Neuts (auto) Absolute Nucleated RBC Nucleated RBC % (auto) PT 12.8 INR 1.1 D-Dimer High Sensitivty Sodium 141 Potassium 4.1 Chloride 105 Carbon Dioxide 27 Anion Gap 13 BUN 11 Creatinine 0.77 Estim Creat Clear Calc 90.8 Estimated GFR > 60 Random Glucose 93 Calcium 9.5 Magnesium 2.0 Total Bilirubin 1.1 H Direct Bilirubin 0.3 AST 21 ALT 16 Alkaline Phosphatase 63 Troponin I High Sens < 3.5 Total Protein 7.3 Albumin 4.5 Urine Color Urine Appearance Urine pH Ur Specific [place] Urine Protein Urine Glucose (UA) Urine Ketones Urine Blood Urine Nitrite Ur Leukocyte Esterase Urine Test Urine Opiates Screen Urine Fentanyl Screen Ur Barbiturates Screen Ur Phencyclidine Scrn Ur Amphetamines Screen U Benzodiazepines Scrn Urine Cocaine Screen U Marijuana (THC) Screen COVID-19 (EUGENIA) COVID-19 Clin Com Influenza Type A (CHELSEA) Influenza Type B (CHELSEA) Influenza A & B Note 03/06/22 03/06/22 03/06/22 13:48 13:48 22:30 WBC RBC Hgb Hct MCV MCH MCHC RDW Plt Count MPV Immature Gran % (Auto) Neut % (Auto) Lymph % (Auto) [place] % (Auto) Eos % (Auto) Baso % (Auto) Lymph # (Auto) [place] # (Auto) Eos # (Auto) Baso # (Auto) Abs Immat Gran (auto) Absolute Neuts (auto) Absolute Nucleated RBC Nucleated RBC % (auto) PT INR D-Dimer High Sensitivty < 150 Sodium Potassium Chloride Carbon Dioxide Anion Gap BUN Creatinine Estim Creat Clear Calc Estimated GFR Random Glucose Calcium Magnesium Total Bilirubin Direct Bilirubin AST ALT Alkaline Phosphatase Troponin I High Sens Total Protein Albumin Urine Color Urine Appearance Urine pH Ur Specific [place] Urine Protein Urine Glucose (UA) Urine Ketones Urine Blood Urine Nitrite Ur Leukocyte Esterase Urine Test Urine Opiates Screen Not Detected Urine Fentanyl Screen Not Detected Ur Barbiturates Screen Not Detected Ur Phencyclidine Scrn Not Detected Ur Amphetamines Screen Not Detected U Benzodiazepines Scrn Not Detected Urine Cocaine Screen Not Detected U Marijuana (THC) Screen Not Detected COVID-19 (EUGENIA) Negative COVID-19 Clin Com See Note Influenza Type A (CHELSEA) Influenza Type B (CHELSEA) Influenza A & B Note 03/06/22 22:30 WBC RBC Hgb Hct MCV MCH MCHC RDW Plt Count MPV Immature Gran % (Auto) Neut % (Auto) Lymph % (Auto) [place] % (Auto) Eos % (Auto) Baso % (Auto) Lymph # (Auto) [place] # (Auto) Eos # (Auto) Baso # (Auto) Abs Immat Gran (auto) Absolute Neuts (auto) Absolute Nucleated RBC Nucleated RBC % (auto) PT INR D-Dimer High Sensitivty Sodium Potassium Chloride Carbon Dioxide Anion Gap BUN Creatinine Estim Creat Clear Calc Estimated GFR Random Glucose Calcium Magnesium Total Bilirubin Direct Bilirubin AST ALT Alkaline Phosphatase Troponin I High Sens Total Protein Albumin Urine Color Urine Appearance Urine pH Ur Specific [place] Urine Protein Urine Glucose (UA) Urine Ketones Urine Blood Urine Nitrite Ur Leukocyte Esterase Urine Test Urine Opiates Screen Urine Fentanyl Screen Ur Barbiturates Screen Ur Phencyclidine Scrn Ur Amphetamines Screen U Benzodiazepines Scrn Urine Cocaine Screen U Marijuana (THC) Screen COVID-19 (EUGENIA) COVID-19 Clin Com Influenza Type A (CHELSEA) Negative Influenza Type B (CHELSEA) Negative Influenza A & B Note See Note Discharge Plan Discharge Anticipated Discharge Date/Time: 03/07/22 16:20 Patient Disposition: Home, Self-Care Discharge Diagnosis: amnesia, orthostasis, anxiety Referrals: Allyson Diaz FNP [Primary Care Provider] - 1 Week Discharge Medications: Continued fluticasone propionate 110 mcg/actuation HFA aerosol inhaler 1 puff INHALATION BID albuterol sulfate 90 mcg/actuation HFA aerosol inhaler 2 puff INHALATION Q4-6H PRN (Reason: Shortness Of Breath) Discharge Orders: Discharge Order (Routine); Ordered 03/07/22 Ordered By: Viridiana Farfan Diet: Regular diet Activity on Discharge: As tolerated Stand Alone Forms: Patient Portal Discharge page Care Plan Goals: Follow up with PCP in 1 week. Monitor for recurrence of symptoms. Health Concerns: Amnesia with facial paresthesias with full resolution of symptoms. Decreased fluid intake and anxiety. Plan of Treatment: Follow up with PCP in 1 week. If symptoms recur should have outpt cardiology workup with tilt table testing and holter monitor as well as neurology referral for EEG. Increase fluid intake. Tick panel pending. I would recommend outpt follow up with your PCP to determine if tilt table testing for POTS (positional orthostatic tachycardia syndrome) is could also be related to your symptoms, especially in the setting of [id number] syndrome. We are also ruling out tick borne illness and you will be called with any positive results. See below Assessment: You presented to the ED with 1.5 hours of amnesia and facial numbness/tingling. We have ruled out any intracranial abnormaltiy such as stroke, TIA, mass that could have caused these symptoms. There was no evidence of cardiac arrhythmia on the air sampling and monitoring. There was no recurrence of symptoms to suggest seizure. You were evaluated by neurology who did not feel there was any seizure or acute abnormality requiring immediate intervention. He felt that because you had not been drinking as much as normal, you developed orthostasis (your HR elevated with change in position) which resulted in decreased oxygen to your brain which can cause a cloudy, foggy sensation which could have induced anxiety with associated symptoms of facial numbness which is not uncommon. While admitted you were found to be orthostatic causing an increase in heart rate upon sitting and standing. This can cause dizziness. You were given IV fluids to help with this without recurrence of symptoms. I would recommend outpt follow up with your PCP to determine if tilt table testing for POTS (positional orthostatic tachycardia syndrome) is could also be related to your symptoms, especially in the setting of [id number] syndrome. We are also ruling out tick borne illness and you will be called with any positive results.
--- NOTE | 2022-03-07 14:49 | PM.NEUROCN ---
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 She awoke around 6:00 when her boyfriend was getting ready for work. She recalls sitting up wanting to kiss him goodbye but felt weird and slumped forward and slid down to a laying position. The patient recalls his voice sounding muffled and farther away and was very confused about what was going on. Her boyfriend states her speech was not slurred and made sense without any facial droop. Her face felt flushed and developed numbness of the entire face. She states she got in the shower and texted her father who arrived at 730am and she felt a bit more oriented but still had tingling along her hairline. Has no history of similar events. She then started to plan a can have some anxiety. All of her symptoms have since resolved.She denies Etoh use or illicit drug use. States she did have a seizure 6 years ago related to zoloft use but this was discontinued without any recurrence. Denies any migraine history. No tick bites. She has h/o panic attacks but states she was not anxious at the onset of her symptoms. On arrival to the ED symptoms had fully resolved but is still unclear about the events between 6-730 this am.? She denies any recent illness. No fevers, chills, nausea, vomiting, abdominal pain, urinary issues, diarrhea, worsening shortness of breath, palpitations, lightheadedness, or chest pain. EKG shows normal sinus rhythm without any ST/T-wave abnormalities.? Hematology studies unremarkable.? Renal function, electrolyte levels, hepatic.? Troponin negative.? UA unremarkable.? Tox screen negative.? Chest x-ray negative for any acute pulmonary pathology.? CTA head and neck are negative for any acute bleed or infarctions.? There are no flow-limiting stenoses in the upper chest neck or focal stenoses intracranially, aneurysms, or vascular malformations.MRI brain was unremarkabl eexcept for minor punctate non specific white matter hyperintensities. Review of Systems Review of Systems: Yes all other systems are reviewed and are negative Constitutional: Constitutional: Reports as per HPI Neurologic: Denies Abnormal speech present [facility] Past Medical History Medical History Post-COVID chronic dyspnea Family History Family History Father Hyperlipidemia Paternal Grandmother Hyperlipidemia HTN (hypertension) Social History Social History Household Members: Significant Other and Children Housing: Apartment Do you presently have visiting nurse or other home services: No Alcohol intake: current Alcohol intake frequency: a few times a month Patient Tobacco Use Status: Never used Tobacco service: No Current occupational status: employed Meds Allergies Allergy/AdvReac Type Severity Reaction Status Date / Time No Known Allergies Allergy Unverified 02/02/20 19:33 [No Known Allergies*] Active Medications: Current Medications Acetaminophen (Acetaminophen 325 Mg Tablet) 650 mg PO Q6H PRN PRN Reason: Pain, Mild (Pain Scale 1-3) Enoxaparin Sodium (Enoxaparin Sodium 40 Mg/0.4 Ml Syringe) 40 mg SUBCUT Q24H [facility] Last Admin: 03/06/22 21:18 Dose: 40 mg Lactated Ringer's (Lr) 1,000 mls @ 100 mls/hr IVCONT .Q10H [facility] Last Admin: 03/07/22 09:06 Dose: 100 mls/hr Ondansetron HCl (Ondansetron Hcl 4 Mg/2 Ml Vial) 4 mg IVPUSH Q8H PRN PRN Reason: Nausea and Vomiting Pharmacy Consult (Consult Rx Perform Med Rec) 1 each MISCELLANE ONCE PRN PRN Reason: Consult order Sodium Chloride (0.9 % Sodium Chloride Flush 3 Ml Syringe) 3 ml IVFLUSH QSHIFT [facility] Last Admin: 03/07/22 09:01 Dose: Not Given Home Medications Medication Instructions Recorded Confirmed Last Taken Type albuterol sulfate 90 mcg/actuation 2 puff inhalation Q4-6H PRN 03/06/22 03/06/22 Unknown History aerosol inhaler Shortness Of Breath fluticasone propionate 110 1 puff inhalation BID 03/06/22 03/06/22 Unknown History mcg/actuation HFA aerosol inhaler Physical Exam Vital Signs: Vital Signs: Last Vital Signs Temp 98.5 F 03/07/22 12:00 Pulse 68 03/07/22 12:00 Resp 19 03/07/22 12:00 BP 104/69 03/07/22 12:00 Pulse Ox 98 03/07/22 12:00 O2 Del Method 03/07/22 12:00 BMI result Body Mass Index 21.6 Const: General: cooperative, healthy appearing, no acute distress, well developed, alert and awake Orientation/consciousness: patient oriented x3 Limitations: no limitations HEENT: Head: Yes normal to inspection and Yes atraumatic Ears: hearing grossly normal bilaterally General nose exam: Normal external nose present Face and sinus: Yes normal facial exam Throat: Yes posterior oropharynx normal, Yes tonsils normal and Yes uvula midline Eyes: General: appearance normal, both eyes and all related structures Pupils: Equal, round and reactive pupils present EOM: EOMs intact bilaterally Neck: Neck: Yes normal visual inspection, Yes no lymphadenopathy and Yes no meningeal signs Resp: Effort & Inspection: normal respiratory effort and no respiratory distress Auscultation: clear to auscultation bilaterally, no crackles, no rales, no rhonchi and no wheezes Cardio: Rate: regular rate Heart sounds: S1 normal heart sound present and S2 normal heart sound present GI: Inspection: Yes normal to inspection Palpation (GI): Soft to palpation, nontender, no guarding and not rigid : General: Yes no CVA tenderness Back/Spine/Pelvis: Back: no CVA tenderness Skin: Rashes: no rashes Wounds: no wounds Neuro: Other: Normal nonfocal neurological examination General: patient oriented x3, gait normal, tone normal, moves all extremities, no meningeal signs, no focal motor deficits and CN's II-XI intact bilaterally Cranial nerves: Yes CN's II-XII intact bilaterally, Yes Equal, round and reactive pupils present and Yes Bilaterally intact EOM present Cognition (Neuro): normal cognition Speech: No Abnormal speech present Gait exam (Neuro): Normal gait present Motor exam (neuro): 5/5 motor strength present throughout, Pronator motor function not present and no tremor noted Coordination: [id number] test normal Romberg Test: Negative Extrem: General: Yes normal to inspection Results Labs CBC & Chem 7: 03/06/22 13:48 03/06/22 13:48 Assessment and Plan (1) Amnesia memory loss: Status: Acute Unclear etiology possibly related to very low blood pressure. No previous history of similar symptoms. EKG is normal. She has not been hydrated and feels back to normal except for some period of patchy amnesiac for about an hour around the event. If symptoms like this occurred future she will need an EEG and a cardiology evaluation for a 30 day event monitor and tilt table test. She can be discharged at this point (2) Altered mental status: Status: Acute Possibly related to cerebral hypoperfusion from low blood pressure at her baseline with superimposed dehydration and some orthostatic hypotension (3) Facial paresthesia: Status: Acute Probably related to anxiety and hyperventilation (4) Orthostasis: Status: Acute Procedures Date of Service Date of Service: 03/07/22
[2022-03-07 16:00] VITALS: BP 110/63; PULSE 67; RESP 16; TEMP 36.6; O2SAT 98
[2022-03-09 21:57] LABS: A. Phagocytphilium DNA,RT-PCR NOT DETECTED (NOT DETECTED); Babesia Microti DNA, RT-PCR NOT DETECTED (NOT DETECTED); Borrelia Miyamotoi,DNA RT-PCR NOT DETECTED (NOT DETECTED); E.Chaffeensis DNA RT-PCR NOT DETECTED (NOT DETECTED); Lyme(Borrelia ssp)DNA RT-PCR NOT DETECTED (NOT DETECTED)
[2022-03-11 15:12] LABS: Source-Tick borne disease BLOOD
== END 2022-03-07 17:56 | disposition home or self-care (01) ==
LOC: HO.ED 19:24 → HO.EDOVER 19:39 → HO.IMC 23:20
PROVIDERS: Physician Assistant; Admitting Provider Physician Assistant; Emergency Provider Internal Medicine; PCP Registered Nurse; Visit Provider Physician Assistant
DX: R41.3 Other amnesia (principal); I95.1 Orthostatic hypotension; R20.2 Paresthesia of skin; R41.82 Altered mental status, unspecified; M54.2 Cervicalgia; F41.9 Anxiety disorder, unspecified; Z86.16 Personal history of COVID-19; Z20.822 Contact with and (suspected) exposure to COVID-19; Z79.899 Other long term (current) drug therapy
CPT/HCPCS: 36415; 70496; 70498; 70551; 80048; 80076; 80307; 81003; 81025; 83735; 84484; 85025; 85379; 85610; 87502; 87635; 87798; 87801; 93005; 96365; 96366; 96372; 96375; 99219; 99285; J1650; Q9967

== ENCOUNTER → 2022-03-21 08:56 | Outpatient (BNVA) | payer MEDICAID, SELFPAY | PROVIDERS: PCP Registered Nurse; Visit Provider Internal Medicine Cardiovascular Disease | DX: R55 Syncope and collapse (principal); R06.00 Dyspnea, unspecified; U09.9 Post COVID-19 condition, unspecified | CPT/HCPCS: 99202 ==

== ENCOUNTER 2022-04-04 06:27 | Outpatient (REF) | payer MEDICAID, SELFPAY ==
--- NOTE | 2022-04-04 06:31 | EEG_ITS ---
Waking background activity consists of a well-defined, moderate voltage 10 hertz alpha frequency that is seen symmetrically and attenuates well with eye opening while low-voltage fast frequencies predominant anteriorly. Photic stimulation was without activation. Hyperventilation was omitted. No focal, lateralizing, or paroxysmal discharges seen. IMPRESSION: This waking EEG is within normal limits. MD GETACHEW Stanley/CAIO / [id number]
== END 2022-04-04 06:28 | disposition home or self-care (01) ==
LOC: HO.NEURO 06:27
PROVIDERS: PCP Registered Nurse; Visit Provider Registered Nurse
DX: R56.9 Unspecified convulsions (principal)
CPT/HCPCS: 95819

== ENCOUNTER → 2022-04-15 10:21 | Outpatient (REF) | payer MEDICAID, SELFPAY ==
--- NOTE | 2022-04-15 10:23 | CA_ITS ---
Transthoracic Echocardiogram Patient (Last, First, Middle): Katiuska Razo, Gender: Female Date of : 1995 Age: 26 Procedure Date: 04/15/2022 Procedure Type: Transthoracic Echocardiogram Location: OP Height: 160.02 cm Weight: 54.43 kg BSA: 1.56 m2 Heart Rate: bpm BP: 100 / 62 mmHg Lead [employer] Developer: TO Referring MD: Suresh Waterman MD Symptoms: R55 - Syncope and collapse Study Quality: Fair ECG Rhythm: Sinus Conclusions: - The left ventricular systolic function is normal. The calculated ejection fraction is 65% by biplane method. - No obvious valvular pathology seen on this study. Findings Left Ventricle Normal left ventricular cavity size. There is normal left ventricular wall thickness. The left ventricular systolic function is normal. The calculated ejection fraction is 65% by biplane method. There is no evidence of regional wall motion abnormalities. Diastolic function is normal for age. Right Ventricle Normal right ventricular cavity size and systolic function. Atria Both atria are normal in size. Aortic Valve There is a normal trileaflet aortic valve. There is no aortic valve stenosis. There is no aortic valve regurgitation. Mitral Valve The mitral valve appears normal. There is no mitral valve regurgitation. There is no mitral valve stenosis. Pulmonic Valve The pulmonic valve is likely normal. Tricuspid Valve Normal tricuspid valve structure. There is trace tricuspid valve regurgitation. There is no evidence of pulmonary hypertension. Great Vessels The aorta was not well visualized. The aortic annulus and sinuses of valsalva are normal in size. Venous The inferior vena cava is normal in size and collapses greater than 50% with inspiration. Pericardium/Pleural There is no evidence of pericardial effusion. Prior Study Comparison No prior study available for comparison. Recommendations, Care & Conclusions No obvious valvular pathology seen on this study. Measurements 2D Linear Measurements IVSd: 0.61 0.6-0.9/0.6-1.0 cm LVIDd: 4.28 3.9-5.3/4.2-5.9 cm LVIDd Index: 2.74 2.4-3.2/2.2-3.1 cm/m2 LVIDs: 2.93 2.0-3.6 cm LVPWd: 0.63 0.7-1.1 cm LA Diam: 2.80 2.7-3.8/3.0-4.0 cm LAIDs Index: 1.79 1.5-2.3 cm/m2 LV Mass: 93.39 67-162/88-224 g LV Mass Index: 59.86 43-95/49-115 g/m2 LVOT Diam: 1.80 3.0+(-)1.3 cm 2D Systolic Function EF 4C: 62.00 >55% EF 2C: 66.20 >55% EF BiP: 65.00 >55% Mitral Valve MV Pk E: 0.88 MV PK A: 0.29 MV Decel Time: 250.00 E/A: 3.10 E'Lateral: 14.60 E'Medial: 12.60 E/E' Med: 7.00 E/E' Lat: 6.00 PHT: 73.00 MVA PHT: 3.01 Decel Fulton: 3.53 Aortic Valve AoV Pk Lazarus: 0.98 AoV Mn Lazarus: 0.69 AoV VTI: 0.20 AoV Pk Grad: 4.00 Aov Mn Grad: 2.00 ROBERT Cont.VTI: 2.28 LVOT LVOT Pk Lazarus: 0.88 LVOT Mn Lazarus: 0.58 LVOT VTI: 0.18 LVOT Pk Grad: 3.00 LVOT Mn Grad: 2.00 LVOT Diam: 1.80 LVOT Area: 2.54 Diastolic Function MV Pk E: 0.88 MV Pk A: 0.29 E/A: 3.10 E'Medial: 12.60 E/E' Med: 7.00 E' Laterial: 14.60 E/E' Lat: 6.00 Right Ventricle TAPSE (mm): 23.00 TVS' Lazarus: 10.30 Tricuspid Valve TR Pk Lazarus: 1.94 TR Pk Grad: 15.00 RA Press: 3.00 RVSP: 18.00 Great Vessels Aorta Sinus of Valsalva: 2.91 2.0-3.5 cm Ao Asc: 2.50 2.1-3.4 cm Updated in Other Vendor System with Status of Final Jeanmarie Baker MD electronically signed on 04/15/2022 2:55:35 PM with status of Final
== END ==
LOC: HO.CARD 10:21
PROVIDERS: PCP Registered Nurse; Visit Provider Internal Medicine Cardiovascular Disease
DX: R55 Syncope and collapse (principal)
CPT/HCPCS: 93306

== ENCOUNTER → 2022-05-16 13:30 | Outpatient (REF) | payer MEDICAID, SELFPAY ==
--- NOTE | 2022-05-16 13:34 | HM_ITS ---
* Total monitoring time about 2 days. * Underlying rhythm is sinus. * Sinus tachycardia noted- 14% of the time. * Rare supraventricular ectopy. * Rare ventricular ectopy. Minimal burden. One couplet. Brief trigeminy noted. * No significant pauses or AV blocks. * No patient diary. MTDD
== END ==
LOC: HO.CARD 13:30
PROVIDERS: Visit Provider Internal Medicine Cardiovascular Disease
DX: R55 Syncope and collapse (principal)
CPT/HCPCS: 93242

== ENCOUNTER → 2022-05-29 13:26 | Outpatient (BNVA) | payer MEDICAID, SELFPAY | PROVIDERS: PCP Registered Nurse; Referring Provider Registered Nurse; Visit Provider Internal Medicine Cardiovascular Disease | DX: R55 Syncope and collapse (principal) | CPT/HCPCS: 99212 ==

== ENCOUNTER 2023-10-21 10:25 | Outpatient (REF) | payer OTHER, SELFPAY ==
--- NOTE | ~2023-10-21 | US_ITS ---
EXAMINATION: US SOFT TISSUE HEAD/NECK CLINICAL INFORMATION: Left deep cervical node, 1.5 cm mobile, persistent since March 2023. COMPARISON: None available. TECHNIQUE: Linear transducer moran-scale and color Doppler examination with attention to the region of concern in the left neck (level VA), with the corresponding right cervical level also scanned. FINDINGS: The cutaneous, subcutaneous, muscular and fascial planes are unremarkable. At level 5A, there are 2.2 x 0.7 x 1.3 cm, 0.6 x 0.2 x 0.4 cm and 0.6 x 0.2 x 0.5 cm reniform lymph nodes. These show normal architectural features. No mass or fluid collection is seen. There is no foreign body. US/US soft tiss head and/or neck IMPRESSION: At left cervical level 5A, in the vicinity of the palpable abnormality, there are lymph nodes, one mildly enlarged, showing a short axis diameter of 1.3 cm. This is nonspecific and should be managed on a clinical basis. If of continued clinical concern, consider short-term follow-up ultrasound imaging in 3-6 months to ensure stability/regression.
== END 2023-10-21 10:26 | disposition home or self-care (01) ==
LOC: HO.HMGCX 10:25
PROVIDERS: PCP Registered Nurse; Visit Provider Nurse Practitioner Family
DX: R59.1 Generalized enlarged lymph nodes (principal)
CPT/HCPCS: 76536

== ENCOUNTER 2023-12-22 14:25 | Outpatient (REF) | payer OTHER, SELFPAY ==
--- NOTE | ~2023-12-22 | US_ITS ---
EXAMINATION: US SOFT TISSUE OF THE NECK CLINICAL INFORMATION: Left neck lymph nodes. COMPARISON: Ultrasound soft tissue head/neck 10/21/2023. TECHNIQUE: Linear transducer grayscale and color Doppler examination of the left neck level Va as indicated by patient. Radiologist was not in attendance. Images were later provided for interpretation. FINDINGS: Targeted ultrasound images were obtained by the motorcycle fabricator of the area of concern as indicated by the patient in the left neck at level Va and demonstrated multiple lymph nodes measuring 1.3 x 0.6 x 1.2 cm, 0.7 x 0.4 x 1.0 cm, and 0.3 x 0.2 x 0.4 cm. Previous ultrasound exam demonstrated left neck level Va nodes measuring 2.2 x 0.7 x 1.3 cm, 0.6 x 0.2 x 0.4 cm, and 0.6 x 0.2 x 0.5 cm. Ultrasound imaging of the corresponding area in the right neck at level Va demonstrate lymph nodes measuring 0.8 x 0.7 x 0.8 cm and 1.3 x 0.4 x 1.6 cm. US/US soft tiss head and/or neck IMPRESSION: Multiple left level Va borderline atypical lymph nodes measuring up to 1.3 cm in transverse dimension in the area indicated by patient. Decisions regarding further management should be based on clinical assessment. Follow-up ultrasound could be obtained in 3-6 months.
== END 2023-12-22 14:26 | disposition home or self-care (01) ==
LOC: HO.HMGCX 14:25
PROVIDERS: PCP Registered Nurse; Visit Provider Nurse Practitioner Family
DX: R59.1 Generalized enlarged lymph nodes (principal)
CPT/HCPCS: 76536

== ENCOUNTER 2024-01-15 15:57 | Outpatient (REF) | payer OTHER, SELFPAY ==
[2024-01-15 17:32] LABS: MANUAL DIFF FLAG NO
[2024-01-15 17:34] LABS: Basophils Percent Auto 0.3 % (0-2); Eosinophils Absolute Auto 0.5 X10*3/uL (0.0-0.4); Eosinophils Percent Auto 5.4 % (0-4); Hematocrit 45.5 % (37.0-47.0); Hemoglobin 14.7 g/dl (12.0-16.0); Imm Gran Abs Auto 0.02 X10*3/uL (0.00-0.03); Imm Gran Pct Auto 0.2 % (0.0-0.4); Lymphocytes Absolute Auto 2.3 X10*3/uL (1.2-4.9); Lymphocytes Percent Auto 24.4 % (20-40); Mean Corpuscular HGB Conc 32.3 g/dl (31.0-35.0); Mean Corpuscular Hemoglobin 30.2 pg (27.0-33.0); Mean Corpuscular Volume 93.6 fL (80.0-98.0); Mean Platelet Volume 10.1 fL (9.4-12.3); Monocytes Absolute Auto 0.8 X10*3/uL (0.1-1.2); Monocytes Percent Auto 8.2 % (2-11); Neutrophils Absolute Auto 5.8 x10*3/uL (2.0-8.3); Neutrophils Percent Auto 61.5 % (45-73); Platelet Count 230 X10*3/uL (160-400); Red Blood Count 4.86 X10*6/uL (4.20-5.50); Red Cell Distribution Width 12.5 % (11.0-16.0); White Blood Count 9.4 X10*3/uL (4.8-10.8)
[2024-01-15 17:54] LABS: Alanine Aminotransferase 21 U/L (0-31); Albumin Level 4.7 g/dL (3.5-5.0); Alkaline Phosphatase 69 U/L (39-117); Anion Gap 12 (12-20); Aspartate Amino Transferase 22 U/L (5-31); Bilirubin Total 0.6 mg/dL (0.0-1.0); Blood Urea Nitrogen 12 mg/dL (9-16); C Reactive Protein < 0.10 mg/dL (< or = 0.50); Calcium 9.3 mg/dL (8.4-10.2); Carbon Dioxide 27 mmol/L (22-29); Chloride 103 mmol/L (96-108); Estimated Glomerular Filt Rate > 60; Glucose Random 73 mg/dL (60-115); Lactate Dehydrogenase 253 U/L (122-220); Potassium 3.2 mmol/L (3.3-5.1); Sodium 139 mmol/L (135-145); Total Protein 7.6 g/dL (6.5-8.0)
[2024-01-15 18:25] LABS: Erythrocyte Sedimentation Rate 2 MM/HR (0-20)
[2024-02-01 12:30] LABS: Prot Elec - Albumin 4.8; Prot Elec - Alpha1 0.3; Prot Elec - Total Protein 7.4
[2024-02-01 12:31] LABS: Prot Elec - Alpha2 0.5; Prot Elec - Beta 1 0.5; Prot Elec - Beta 2 0.3
[2024-02-01 12:32] LABS: Prot Elec - Gamma 1.1
== END 2024-01-15 15:58 | disposition home or self-care (01) ==
LOC: HO.HHCL 15:57
PROVIDERS: Referring Provider Nurse Practitioner Family; Visit Provider Registered Nurse
DX: R63.5 Abnormal weight gain (principal); R59.1 Generalized enlarged lymph nodes
CPT/HCPCS: 36415; 80053; 83615; 84165; 84443; 85025; 85652; 86140